=== PATIENT | female | born 1985 | race Caucasian/White ===

== ENCOUNTER 2018-11-24 17:01 | Inpatient (IN) ==
[2018-11-24] MEDS ORDERED: CARDIZEM IV ONE (17:22)
[2018-11-24] MEDS ORDERED: NS 1,000 ML IV ONE (17:23)
[2018-11-24 17:39] LABS: BASO# 0.02 X1000 (0.0-0.2); BASO% 0.4 % (0.0-0.8); EOS# 0.04 X1000 (0.0-0.7); EOS% 0.9 % (0.0-10.0); HEMATOCRIT 30.6 % (37.0-47.0); HEMOGLOBIN 9.8 g/dL (12.0-16.0); IMM GRAN# 0.01 X1000 (0.0-0.04); IMM GRAN% 0.2 % (0.0-0.5); LYMPH# 1.74 X1000 (1.2-3.4); LYMPH% 38.3 % (20.5-51.1); MCH 26.3 PG (27-31); MONO# 0.49 X1000 (0.11-0.59); MONO% 10.8 % (1.7-9.3); NEUT# 2.24 X1000 (1.4-6.5); NEUT% 49.4 % (42.2-75.2); PLT 241 X1000 (130-400); RBC 3.73 XMIL (4.2-5.4); RDW 15.3 % (11.5-14.5); WBC 4.54 X1000 (4.8-10.8)
--- NOTE | 2018-11-24 17:57 | EKG Report ---
Test Performed on : 11/24/2018 5:24:15 PM Test Reason : TACHYCARIA Blood Pressure : / mmHG Vent. Rate : 155 BPM Atrial Rate : 150 BPM P-R Int : 000 ms QRS Dur : 078 ms QT Int : 288 ms P-R-T Axes : 000 035 033 degrees QTc Int : 462 ms Atrial fibrillation. with rapid ventricular response. Cannot rule out Anterior infarct , age undetermined Abnormal ECG No previous ECGs available Unconfirmed Result
--- NOTE | 2018-11-24 17:59 | PROVIDER DOCUMENTATION ---
This chart was entered by Taiwo Daugherty Scribe, acting as scribe for Paulina Elizondo MD. HPI-General Adult - General Chief Complaint: Edema Stated Complaint: EDEMA / VOMITING Time Seen by Provider: 11/24/18 17:18 Source: patient, family Allergies/Adverse Reactions: Patient Allergies Allergy/AdvReac Type Severity Reaction Status Date / Time No Known Allergies Allergy Verified 11/24/18 17:35 Home Medications: Home Medication List Medication Instructions Recorded Confirmed Last Taken Type NK [No Home Medications] 11/24/18 11/24/18 Unknown History - History of Present Illness -Gen Adult Nature of Presenting Problems: 33 yof presents to the ED with c/o abdominal pain, neck swelling, shortness of breath,N/V. LE Edema. pt has abscess on left breast area. pt has hx of MRSA and Graves. Location of Pain/Injury: reports: abdomen Pain Radiation: reports: no radiation Quality of Pain: reports: none Severity: reports: mild Onset/Duration: reports: 2 days ago Timing: reports: still present Context/Activities at Onset: reports: light activity Modifying Factors: improves with: nothing Associated Symptoms: reports: nausea, shortness of breath, vomiting Similar Symptoms Previously?: No Recently seen or treated by another doctor?: No Review of Systems - Adult - REVIEW OF SYSTEMS - ADULT Constitutional: reports: no symptoms reported Eyes: reports: no symptoms reported Ears, Nose, Mouth & Throat: reports: no symptoms reported Cardiovascular: reports: no symptoms reported Respiratory: reports: no symptoms reported Gastrointestinal: reports: see HPI, abdominal pain, nausea, vomiting. denies: constipation, diarrhea Genitourinary: reports: no symptoms reported Musculoskeletal: reports: other (neck swelling). denies: back pain, muscle aches Integumentary: reports: no symptoms reported Neurological: reports: no symptoms reported Psychiatric: reports: no symptoms reported Endocrine: reports: no symptoms reported Hematologic/Lymphatic: reports: no symptoms reported Allergic/Immunologic: reports: no symptoms reported All Other Systems: Reviewed and Negative Past History - Adult - PAST MEDICAL HISTORY-ADULT Review of Records: reports: Old Records Reviewed, Nursing Assessment Review, Medications Reviewed, Social history reviewed & non-contributory. Major Childhood Illnesses: reports: denies history Cardiovascular: reports: denies history Respiratory: reports: denies history Gastrointestinal: reports: denies history Obstetrical/Gynecological: reports: denies history Genitourinary: reports: denies history Musculoskeletal: reports: denies history Neurological: reports: denies history Psychiatric: reports: denies history Endocrine/Immune: reports: denies history Other Conditions: reports: denies history, other (Hep C) - PRIOR SURGERIES/PROCEDURES Surgical/Procedure History: reports: none - IMMUNIZATION STATUS Childhood Immunizations: See Nurse Assessment Flu Vaccine: See Nurse Assessment - FAMILY HISTORY Family History: reviewed, not pertinent - SOCIAL HISTORY Smoking: cigarettes, less than 1 pack/day Provider spent 3-5 mins advising pt. on dangers of tobacco.: Discussed manners to quit use, and f/u contacts for add'l counseling. Living Situation: alone Physical Exam-General - PHYSICAL EXAM-ADULT Initial Vital Signs Reviewed: Yes - CONSTITUTIONAL General Appearance: appears well, alert, no apparent distress - EYES Eyes: PERRL/EOMI - HEAD, EARS, NOSE, MOUTH & THROAT HENMT: moist mucous membranes - NECK Neck: full range of motion - RESPIRATORY Respiratory: chest non-tender, lungs clear, normal breath sounds. negative: crackles, rales, wheezing - CARDIOVASCULAR Cardiovascular: tachycardia (156) - GASTROINTESTINAL (ABDOMEN) Abdominal Exam: normal bowel sounds. negative: guarding, rigid, rebound - LYMPHATIC Lymphatic: no adenopathy - MUSCULOSKELETAL Back Exam: no CVA tenderness Extremity: normal range of motion, non-tender, normal gait - SKIN Integumentary: normal color, normal turgor, warm/dry (dry) - NEUROLOGIC Neurologic: grossly normal - PSYCHIATRIC Psych/Mental Status: normal mood/affect, normal thought content, normal thought process, oriented x 3 Progress - PLAN OF CARE/RESULTS Progress/Plan/Lab Results: Vital Signs - 8 hr 11/24/18 17:10 Temperature 98 F Pulse Rate 156 H Respiratory Rate 20 Blood Pressure 153/99 O2 Sat by Pulse Oximetry 96 Orders Category Date Time Status Cardiac Monitoring DIRECTED Care 11/24/18 17:17 Active Nursing- Obtain EKG ONCE Care 11/24/18 17:17 Active Saline Loc NOW Care 11/24/18 17:17 Active CBC WITH DIFF [HEME] Stat Lab 11/24/18 17:17 Ordered COMPREHENSIVE METABOLIC PANEL [CHEM] Stat Lab 11/24/18 17:17 Uncollected FREE T4 Stat Lab 11/24/18 17:17 Uncollected PRO B-NATRIURETIC PEPTIDE Stat Lab 11/24/18 17:17 Uncollected TSH Stat Lab 11/24/18 17:17 Uncollected 0.9% Sodium Chloride Inj [Ns] 1,000 ml Med 11/24/18 17:23 Active IV 999 mls/hr Diltiazem [Cardizem] Med 11/24/18 17:22 Discontinued 20 mg IV NOW ONE EKG [EKG] Stat Ther 11/24/18 17:17 Ordered Result Diagrams: 11/24/18 17:30 11/24/18 17:30 - REASSESSMENT Reassessment #1 Time Reassessed: 18:48 Status: improving - EKG 1 Time of EKG reading by physician:: 17:24 EKG Read and Signed by:: Paulina Elizondo EKG Interpretation (*Must complete 3 of following elements*): Abnormal Rate: 155 Rhythm: Atrial fibrillation with rapid ventricular response [place]: normal QRS: normal [place] Interval: normal ST Wave: normal Comments: cannot rule out Anterior infract, age undetermind - CONSULTS/PCP/HOSPITALIST Notification #1 *Consult/PCP/Hospitalist*: Simon Time Discussed: 18:49 Reason/Comments: For admission Consult Disposition: Admit Departure - Departure Date of Disposition Decision: 11/24/18 Time of Disposition Decision: 18:59 DIAGNOSIS: Tobacco abuse disorder, Thyrotoxicosis due to Graves' disease, Atrial fibrillation with rapid ventricular response Disposition: ADMITTED INPATIENT 09 Certified Medical Emergency: Emergent Condition: Stable Referrals and Follow-Ups: None,PCP [Primary Care Provider] - Discharge Education: Steps to Quit Smoking, [id number] - Critical Care Note This patient required my direct & personal management of CC.: Yes Total Time (mins): 45 Critical Care Statement: This patient required my direct personal management to treat or rule out processes, the absence of which, could potentiallly result in sudden, clinically significant life or limb threatening deterioration. Attestation - Physician/ ROHAN Attestation Patient care was provided by Advanced Practice Provider:: No The physician spent face to face time with patient:: Yes Advanced Practice Provider documentation review:: Supervising physician onsite and consulted in the evaluation and care of this patient. The physician did have a face to face encounter with the patient. This chart was documented by the indicated scribe, (Taiwo Daugherty, [employer]rib[employer]) and accurately reflects the services I performed and decisions made by me, Paulina Elizondo MD, as attested by the provider's signature.
[2018-11-24 18:22] LABS: AGAP 11; ALBUMIN 3.6 g/dL (3.5-5.0); ALKALINE PHOSPHATASE 358 U/L (32-104); BUN 7 mg/dL (8-22); CALCIUM 8.9 mg/dL (8.8-10.2); CHLORIDE 105 mmol/L (98-107); COSMO 284; CREATININE 0.3 mg/dL (0.5-0.9); ESTIMATED GFR > 60; GLUCOSE 120 mg/dL (70-104); GOT 35 U/L (10-30); GPT 14 U/L (10-36); POTASSIUM 3.5 mmol/L (3.5-5.1); SODIUM 143 mmol/L (136-145); TCO2 28 mmol/L (25-35); TOTAL PROTEIN 6.2 g/dL (6.3-8.3)
[2018-11-24 19:07] LABS: TSH 0.01 uIUmL (0.27-4.20)
[2018-11-24 21:00] LABS: FREE T4 > 7.77 ng/dL (0.93-1.70)
--- NOTE | 2018-11-24 21:31 | EKG Report ---
Test Performed on : 11/24/2018 9:01:40 PM Test Reason : Tachycardia Blood Pressure : / mmHG Vent. Rate : 123 BPM Atrial Rate : 441 BPM P-R Int : 000 ms QRS Dur : 078 ms QT Int : 274 ms P-R-T Axes : 000 038 040 degrees QTc Int : 392 ms Atrial fibrillation. with rapid ventricular response. Cannot rule out Anterior infarct (cited on or before 24-NOV-2018) Abnormal ECG When compared with ECG of 24-NOV-2018 17:24, (Unconfirmed) No significant change was found Confirmed by Arben Ravi MD ([id number]) on 12/08/2018 11:49:20 AM
[2018-11-24] MEDS: TENORMIN PO SCH (21:43)
[2018-11-24] MEDS: TYLENOL PO PRN (21:43)
[2018-11-24] MEDS: NS 1,000 ML IV SCH (21:43)
[2018-11-24] MEDS: TAPAZOLE PO SCH (22:00)
[2018-11-24] MEDS ORDERED: CARDIZEM PO SCH ×2 (23:00→23:15)
[2018-11-24] MEDS ORDERED: BENADRYL PO PRN (23:01)
[2018-11-24] MEDS ORDERED: PRILOSEC PO ONE (23:02)
[2018-11-24] MEDS: NICODERM PATCH TD PRN (23:17)
[2018-11-25] MEDS ORDERED: CARDIZEM PO SCH
[2018-11-25] MEDS: TYLENOL PO PRN ×2 (01:55→19:47)
[2018-11-25] MEDS: TAPAZOLE PO SCH ×3 (05:48→20:32)
[2018-11-25 05:51] LABS: CLARITY CLEAR (CLEAR); COLOR YELLOW; URINE SOURCE CLEAN CATCH
[2018-11-25 05:52] LABS: BILIRUBIN URINE NEGATIVE (NEGATIVE); BLOOD URINE NEGATIVE (NEGATIVE); GLUCOSE URINE NEGATIVE (NEGATIVE); KETONE URINE NEGATIVE (NEGATIVE); LEUKOCYTES URINE TRACE (NEGATIVE); NITRITE URINE NEGATIVE (NEGATIVE); PH URINE 6.5; PROTEIN URINE 1+(30 mg/dL) mg/dL (NEGATIVE); URINE EPITHELIAL CELLS <10 /HPF (<10); URINE RBC <10 /HPF (<10); URINE WBC <10 /HPF (<10); UROBILINOGEN URINE 1 mg/dL
[2018-11-25 05:53] LABS: URINE BACTERIA 2+ /HFP; URINE CRYSTAL CA OXALATE PRESENT /HPF
--- NOTE | 2018-11-25 05:58 | EKG Report ---
Test Performed on : 11/25/2018 05:48:28 AM Test Reason : Sinus Tachycardia Blood Pressure : / mmHG Vent. Rate : 113 BPM Atrial Rate : 122 BPM P-R Int : 000 ms QRS Dur : 082 ms QT Int : 362 ms P-R-T Axes : 000 057 060 degrees QTc Int : 496 ms Atrial fibrillation. with rapid ventricular response. with premature ventricular or aberrantly conduc ida complexes. Abnormal ECG When compared with ECG of 24-NOV-2018 21:01, (Unconfirmed) No significant change was found Confirmed by Arben Ravi MD ([id number]) on 12/08/2018 11:49:14 AM
[2018-11-25 06:00] LABS: UR AMPHETAMINES QUAL NONE DETECTED (NONE DETECT); UR BARBITUATES QUAL NONE DETECTED (NONE DETECT); UR BENZODIAZEPIN QUAL NONE DETECTED (NONE DETECT); UR CANNABINOIDS QUAL NONE DETECTED (NONE DETECT); UR COCAINE QUAL NONE DETECTED (NONE DETECT); UR METHADONE QUAL NONE DETECTED (NONE DETECT); UR METHAMPHETAMINE QUAL NONE DETECTED (NONE DETECT); UR OPIATES QUAL NONE DETECTED (NONE DETECT); UR OXYCODONE QUAL NONE DETECTED (NONE DETECT); UR PCP QUAL NONE DETECTED (NONE DETECT); UR PROPOXYPHENE QUAL NONE DETECTED (NONE DETECT); UR TCA QUAL NONE DETECTED (NONE DETECT)
[2018-11-25] MEDS: PRILOSEC PO SCH (06:18)
[2018-11-25 07:16] LABS: BASO# 0.01 X1000 (0.0-0.2); BASO% 0.1 % (0.0-0.8); EOS# 0.03 X1000 (0.0-0.7); EOS% 0.4 % (0.0-10.0); HEMATOCRIT 32.5 % (37.0-47.0); HEMOGLOBIN 10.2 g/dL (12.0-16.0); IMM GRAN# 0.01 X1000 (0.0-0.04); IMM GRAN% 0.1 % (0.0-0.5); LYMPH# 1.78 X1000 (1.2-3.4); LYMPH% 26.5 % (20.5-51.1); MCHC 31.4 g/dL (33-37); MCV 82.9 FL (81-99); MONO# 0.83 X1000 (0.11-0.59); MONO% 12.4 % (1.7-9.3); MPV 10.3 FL (7.4-10.4); NEUT# 4.05 X1000 (1.4-6.5); NEUT% 60.5 % (42.2-75.2); PLT 247 X1000 (130-400); RBC 3.92 XMIL (4.2-5.4); RDW 15.5 % (11.5-14.5); WBC 6.71 X1000 (4.8-10.8)
[2018-11-25 07:33] LABS: AGAP 13; BUN 10 mg/dL (8-22); CALCIUM 8.8 mg/dL (8.8-10.2); CHLORIDE 104 mmol/L (98-107); COSMO 279; CREATININE 0.4 mg/dL (0.5-0.9); ESTIMATED GFR > 60; GLUCOSE 116 mg/dL (70-104); MAGNESIUM 1.5 mg/dL (1.5-2.7); POTASSIUM 3.7 mmol/L (3.5-5.1); SODIUM 140 mmol/L (136-145); TCO2 24 mmol/L (25-35)
[2018-11-25] MEDS ORDERED: CARDIZEM IV ONE (08:08)
[2018-11-25] MEDS ORDERED: CARDIZEM 125 MG/D5W 125 MG/125 ML IVPB IV SCH (08:15)
[2018-11-25] MEDS ORDERED: MAGNESIUM SULFATE 2 GM/S.W.I. 2 GM/50 ML IVPB IV ONE (08:49)
[2018-11-25] MEDS: TENORMIN PO SCH ×2 (08:59→17:35)
[2018-11-25] MEDS: ASPIRIN PO SCH (08:59)
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
[2018-11-25] MEDS ORDERED: ATIVAN IV PRN (09:20)
[2018-11-25] MEDS ORDERED: ATIVAN IV ONE (09:20)
[2018-11-25] MEDS: NS 1,000 ML IV SCH ×2 (10:04→22:43)
--- NOTE | 2018-11-25 11:53 | Diag Imaging Result Doc PS360 ---
KUB ABDOMEN - 11/25/2018 INDICATION: abd pain COMPARISON: 07/21/2012 FINDINGS: There is a nonobstructive bowel gas pattern. No free air or abdominal calcifications. No constipation. IMPRESSION: Negative exam. Electronically signed by Luis Scott 11/25/2018 11:50 AM
[2018-11-25] MEDS ORDERED: BENADRYL PO PRN (13:10)
[2018-11-25] MEDS: BENADRYL IV PRN ×2 (13:15→21:14)
[2018-11-25] MEDS: ATIVAN IV PRN ×4 (13:58→22:23)
--- NOTE | 2018-11-25 14:33 | HISTORY AND PHYSICAL ---
ADDENDUM: I saw the patient [id number] and fully agree with the assessment and plan of nurse practitioner Elicia Monroy. This is a 33-year-old female who has been admitted with palpitations and tachycardia. She has thyrotoxicosis with known Graves disease and is now in atrial fibrillation with rapid ventricular response. She is going to be treated with IV Cardizem along with oral methimazole and atenolol. We will provide her supportive care and obtain cardiology consultation since she will need probably an echocardiogram and followed by possible cardioversion. Further recommendations will be given as per hospital course. cc: Teo Montes MD
[2018-11-25] MEDS: ZOFRAN IV PRN ×2 (16:40→19:47)
[2018-11-25] MEDS: LASIX IV SCH (19:26)
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
[2018-11-25] MEDS: NICODERM PATCH TD PRN (19:47)
[2018-11-25] MEDS: ALDACTONE PO SCH (20:32)
[2018-11-25 22:33] LABS: URINE SOURCE CATH
[2018-11-25 22:35] LABS: BILIRUBIN URINE NEGATIVE (NEGATIVE); BLOOD URINE NEGATIVE (NEGATIVE); GLUCOSE URINE NEGATIVE (NEGATIVE); KETONE URINE NEGATIVE (NEGATIVE); LEUKOCYTES URINE NEGATIVE (NEGATIVE); NITRITE URINE NEGATIVE (NEGATIVE); PROTEIN URINE NEGATIVE (NEGATIVE); SP GRAVITY URINE 1.015; URINE BACTERIA 1+ /HFP; URINE CAST GRANULAR PRESENT /LPF; URINE EPITHELIAL CELLS <10 /HPF (<10); URINE RBC <10 /HPF (<10); URINE WBC <10 /HPF (<10); UROBILINOGEN URINE NORMAL
[2018-11-25 22:36] LABS: CLARITY CLEAR (CLEAR); COLOR YELLOW
[2018-11-25] MEDS ORDERED: HALDOL IV ONE (22:52)
[2018-11-26] MEDS: ATIVAN IV PRN ×3 (00:33→22:10)
[2018-11-26] MEDS ORDERED: LASIX IV ONE (01:13)
[2018-11-26] MEDS ORDERED: SOLU-MEDROL IV ONE (01:13)
[2018-11-26] MEDS: TENORMIN PO SCH ×2 (05:00→18:09)
[2018-11-26] MEDS: TAPAZOLE PO SCH ×4 (05:01→22:10)
[2018-11-26] MEDS: PRILOSEC PO SCH (06:09)
--- NOTE | 2018-11-26 06:29 | Diag Imaging Result Doc PS360 ---
CHEST-PORTABLE - 11/26/2018 INDICATION: follow up COMPARISON: 07/21/2012 FINDINGS: There is mild cardiomegaly. There is some hazy interstitial infiltrate in the right lower lobe. The left lung appears clear. No pneumothorax or pleural effusion. IMPRESSION: 1. Cardiomegaly. 2. Hazy right lower lobe infiltrate suggesting pneumonia. Electronically signed by Luis Scott 11/26/2018 6:27 AM
[2018-11-26 06:40] LABS: BE -3.6 mmoll (-3.0-3.0); BLOOD TYPE ARTERIAL; HCO3-(ACT) 22.1 mmoll (20.0-26.0); METHB 1.1 % (0.0-1.5); O2(CT) 14.4 mL/dL (15.0-23.0); O2HB 95.9 % (95.0-99.0); PCO2(98.6) 32 mmHg (35-45); PO2(98.6) 94 mmHg (60-100); SAMPLE BLOOD; SAO2 98.9 % (95.0-100.0); THB 10.6 g/dL (11.5-17.4); pH(98.6) 7.41 (7.35-7.45)
[2018-11-26 06:42] LABS: ALLEN TEST NO; MODALITY BI PAP
[2018-11-26 07:16] LABS: CALCIUM 9.1 mg/dL (8.8-10.2); PHOSPHORUS 4.7 mg/dL (2.7-4.5)
[2018-11-26 07:26] LABS: AGAP 15; ALBUMIN 3.4 g/dL (3.5-5.0); ALKALINE PHOSPHATASE 315 U/L (32-104); BUN 19 mg/dL (8-22); CALCIUM 8.9 mg/dL (8.8-10.2); CHLORIDE 108 mmol/L (98-107); COSMO 289; CREATININE 0.6 mg/dL (0.5-0.9); ESTIMATED GFR > 60; GLUCOSE 96 mg/dL (70-104); GOT 36 U/L (10-30); GPT 15 U/L (10-36); POTASSIUM 3.6 mmol/L (3.5-5.1); SODIUM 144 mmol/L (136-145); TCO2 21 mmol/L (25-35)
[2018-11-26] MEDS: LASIX IV SCH (07:43)
[2018-11-26] MEDS ORDERED: SUBOXONE 2 MG/0.5 MG FILM SL ONE (08:24)
[2018-11-26] MEDS ORDERED: MAGNESIUM SULFATE 2 GM/S.W.I. 2 GM/50 ML IVPB IV ONE (09:04)
[2018-11-26] MEDS: ALDACTONE PO SCH (09:11)
[2018-11-26] MEDS: ASPIRIN PO SCH (09:11)
[2018-11-26 11:53] LABS: PREALBUMIN 5.9 mg/dL (20-40)
[2018-11-26 12:03] LABS: TSH 0.01 uIUmL (0.27-4.20)
--- NOTE | 2018-11-26 13:28 | EKG Report ---
Test Performed on : 11/26/2018 1:19:32 PM Test Reason : rate change Blood Pressure : / mmHG Vent. Rate : 069 BPM Atrial Rate : 080 BPM P-R Int : 000 ms QRS Dur : 078 ms QT Int : 440 ms P-R-T Axes : 000 039 039 degrees QTc Int : 471 ms Atrial fibrillation. Cannot rule out Anterior infarct , age undetermined Abnormal ECG When compared with ECG of 25-NOV-2018 05:48, (Unconfirmed) Vent. rate has decreased BY 44 BPM Confirmed by Arben Ravi MD ([id number]) on 12/08/2018 11:48:24 AM
--- NOTE | 2018-11-26 13:36 | CARDIOLOGY PROGRESS NOTE ---
DATE: 11/26/2018 CHIEF COMPLAINT: Irregular heart beat, restlessness, tachycardia, and palpitations. SUBJECTIVE: Mrs. Franklin apparently was agitated overnight. She has been given Suboxone for sedation. A chest x-ray was obtained today at 5:00 in the morning and was reported as cardiomegaly with hazy right lower lobe infiltrate suggesting pneumonia. Her thyroid profile still indicates a very low TSH level and a very high free T4 level, greater than 7.77 nanograms per dL. OBJECTIVE: Vital signs: Right now, pulse is 66 to 70 beats per minute, temperature 97.2, respirations 27, blood pressure 108/50. Her Cardizem has been put on hold. Chest: Shows symmetrical breath sounds. diffusely diminished breath sounds. Heart: Sounds are irregularly irregular. Abdomen: Distended and is somewhat firm. Likely ascites there. Extremities: Showed trace edema. Neurological exam: She is very sedated. LABORATORY STUDIES: Today, blood gases were run in the morning, pH 7.41, pO2 94, pCO2 32. Sodium 144, potassium 3.6, magnesium is 1.7, bilirubin 1.2, ALT 15, AST 36, alkaline phosphatase has come down to 315, prealbumin is low at 5.9, indicating moderate bordering into severe protein depletion. EKG done this morning showed atrial fibrillation, rate of 113, with no ischemic ST-T changes. IMPRESSION: 1. Patient who presented with decompensated hyperthyroidism. Graves disease, untreated. Possibly thyroid storm. 2. Congestive heart failure, diastolic, probably secondary to paroxysmal atrial fibrillation and increased metabolic rate. 3. Patient with paroxysmal atrial fibrillation. 4. Agitation. Mental status changes. RECOMMENDATIONS: At this time, we have put Cardizem on hold. The review of her echocardiogram suggests that her ejection fraction is probably borderline decreased. She does have moderate right-sided enlargement with tricuspid regurgitation. Her left-sided valves are unremarkable. There is no pericardial effusion. This echo may probably reflect a combination of diastolic heart failure from atrial fibrillation and hyperthyroidism. At this time, we will continue the patient on atenolol. We will keep her on a low-grade diuretic regimen. Will try to optimize her electrolytes. I believe we ought to discuss the case with an visiting housekeeper and see if would be appropriate to transfer her to [facility] where they have the endocrinology team at hand. Will follow her. cc: Joseph Rousseau MD [facility]
[2018-11-26 13:40] LABS: BE -9.1 mmoll (-3.0-3.0); BLOOD TYPE ARTERIAL; HCO3-(ACT) 17.7 mmoll (20.0-26.0); METHB 1.2 % (0.0-1.5); O2(CT) 13.5 mL/dL (15.0-23.0); O2HB 91.1 % (95.0-99.0); PCO2(98.6) 43 mmHg (35-45); PO2(98.6) 71 mmHg (60-100); SAMPLE BLOOD; SAO2 94.3 % (95.0-100.0); THB 10.5 g/dL (11.5-17.4); pH(98.6) 7.23 (7.35-7.45)
[2018-11-26 13:47] LABS: ALLEN TEST YES; MODALITY CANNULA
--- NOTE | 2018-11-26 14:07 | ECHO REPORT ---
ORDER DATE: 11/26/2018 INDICATION: Atrial fibrillation, withdrawals. FINDINGS: 1. Right atrium is mildly enlarged at 4.4 cm. 2. Moderate tricuspid regurgitation. RV systolic pressure of 31. 3. Normal RV size and systolic function. 4. Mild pulmonic insufficiency. 5. Normal left atrial size with a dimension of 3.7 cm. 6. No mitral valve prolapse. Mild to moderate mitral regurgitation. No evidence of mitral stenosis. 7. Normal LV size, end-diastolic dimension of 4.1. Normal wall thicknesses with a posterior and interventricular septal wall thickness of 1 cm each. Normal LV systolic function. Estimated EF is 60% with normal wall motion. 8. Aortic valve opens well. It is trileaflet. No evidence of stenosis or insufficiency. 9. Aorta appears normal in visualized segments. 10. No pericardial effusion seen. cc: Hector Rogers MD
[2018-11-26] MEDS: NS 1,000 ML IV SCH (15:29)
[2018-11-26] MEDS ORDERED: NARCAN IV ONE (15:43)
[2018-11-26] MEDS ORDERED: LACRI-LUBE OPH OINT BOTH EYES PRN (15:54)
[2018-11-26] MEDS ORDERED: NS 1,000 ML IV ONE (16:27)
[2018-11-26] MEDS ORDERED: LEVOPHED 8 MG in D5 1/2 NS 250 ML IV SCH (16:30)
[2018-11-26] MEDS ORDERED: NS 1,000 ML IV SCH ×2 (16:30→20:45)
[2018-11-26 16:55] LABS: BASO# 0.01 X1000 (0.0-0.2); BASO% 0.1 % (0.0-0.8); HEMATOCRIT 31.2 % (37.0-47.0); HEMOGLOBIN 9.7 g/dL (12.0-16.0); IMM GRAN# 0.06 X1000 (0.0-0.04); IMM GRAN% 0.5 % (0.0-0.5); LYMPH# 1.12 X1000 (1.2-3.4); LYMPH% 9.8 % (20.5-51.1); MCH 26.1 PG (27-31); MCHC 31.1 g/dL (33-37); MCV 84.1 FL (81-99); MONO# 0.96 X1000 (0.11-0.59); MONO% 8.4 % (1.7-9.3); MPV 10.4 FL (7.4-10.4); NEUT# 9.29 X1000 (1.4-6.5); NEUT% 81.2 % (42.2-75.2); PLT 293 X1000 (130-400); RBC 3.71 XMIL (4.2-5.4); RDW 16.1 % (11.5-14.5); WBC 11.44 X1000 (4.8-10.8)
[2018-11-26 17:54] LABS: ALB/GLOB RATIO 1.3; ALBUMIN 3.2 g/dL (3.5-5.0); CALCIUM 9.2 mg/dL (8.8-10.2); CREATININE 1.1 mg/dL (0.5-0.9); TOTAL BILIRUBIN 1.55 mg/dL (0.20-1.00); TOTAL PROTEIN 5.6 g/dL (6.3-8.3)
[2018-11-26] MEDS ORDERED: D50W SYRINGE IV ONE (19:02)
[2018-11-26] MEDS ORDERED: OFIRMEV 1000 MG/ISOTONIC SOLN 1,000 MG/100 ML BOTTLE IV PRN (19:03)
[2018-11-26 20:14] LABS: FREE T4 > 7.77 ng/dL (0.93-1.70)
[2018-11-26] MEDS ORDERED: ROCEPHIN 1 GM in NS 50 ML IV ONE (20:26)
[2018-11-26] MEDS ORDERED: VANCOMYCIN 1 GM/NS 1 GM/250 ML IVPB IV ONE (21:00)
[2018-11-26 22:13] VITALS: BP 98/42
--- NOTE | 2018-11-27 13:53 | DISCHARGE SUMMARY ---
ADMISSION DATE: 11/24/2018 DISCHARGE DATE: 11/26/2018 DISCHARGE DIAGNOSIS: 1. Drug abuse with taken 2 to 3 bottles at 15 tablets per bottle a day. 2. Thyrotoxicosis with known history of Graves' disease in a patient who has been extremely noncompliant, in fact has fact not been on her medications nor had her labs checked in close to a year. 3. Proptosis, secondary to her hyperthyroidism. 4. Acute respiratory failure. 5. History of methicillin-resistant Staphylococcus aureus in the left breast. 6. History of hepatitis C secondary to IV drug use. I believe she has been treated for this. 7. Chronic tobacco abuse. 8. Hypotension. Certainly concerning that she may be developing sepsis. Her recent ABG demonstrated an elevation in her lactate level. We are going to add antibiotics, Rocephin, and vancomycin. CONSULTATIONS: None. PROCEDURES: None. BRIEF HOSPITAL COURSE: Patient was admitted to the hospital and was noted to have atrial fibrillation with RVR as well as a significant hyperthyroidism with a TSH of 0.01 and a free T4 markedly elevated. She was initially placed on Cardizem drip. Thankfully, this has been weaned off. This morning she was moaning and writhing in pain, constantly fidgeting and moving about. She was given 1 small dose of Suboxone 0.2/0.5 due to her significant abuse of which are an [id number] opiate-like substance at higher doses and she was taking between 30 and 45 pills a day. This did seem to improve her constant fidgeting and writhing. However, this afternoon, 6 or so hours after the Suboxone dose, she started having increased respiratory difficulty again. Started becoming more somnolent. She was placed back on BiPAP as well as Levophed. Narcan did not affect her, so I certainly doubt that the small dose of Suboxone is the culprit here. Her blood sugars were noted to be very low. She has been given D50. She is more awake after the D50. At this point, we are going to leave her on BiPAP and Levophed and transfer her to [facility] for pulmonology and endocrinology assistance. cc: MD MANUEL Stephens
== END 2018-11-26 22:00 | disposition short-term general hospital (02) | DRG 643 ==
LOC: P.ED 17:01 → P.ICU 19:55
PROVIDERS: ATTEND Internal Medicine